=== PATIENT | male | born 1985 | race Caucasian/White ===

== ENCOUNTER 2019-06-15 13:23 | Emergency (ER) | payer OTHER, BC ==
[2019-06-15] MEDS ORDERED: VYVANSE70 MG PO (14:56)
[2019-06-15] MEDS ORDERED: ZESTRIL10 MG PO (14:56)
[2019-06-15 15:05] VITALS: BP 141/88
== END 2019-06-15 15:05 | disposition home or self-care (01) | DRG 605 ==
LOC: ED 13:23
DX: S00.01XA Abrasion of scalp, initial encounter (principal); Y35.811A Legal intervention involving manhandling, law enforcement official injured, initial encounter; Y93.89 Activity, other specified; Y92.149 Unspecified place in prison as the place of occurrence of the external cause; Y99.0 Civilian activity done for income or pay